=== PATIENT | male | born 1985 | race African-American/Black ===

== ENCOUNTER 2019-08-26 07:53 | Emergency (ER) | payer SELFPAY ==
[~2019-08-26] VITALS: Ht 167.6 cm; Wt 79.4 kg
--- NOTE | 2019-08-26 08:14 | PHYS DOC ---
Past Medical History Past Medical History: Diabetes-Type I, Hypertension Smoking: Cigarettes Alcohol Use: Occasionally Drug Use: Marijuana Adult General Chief Complaint Chief Complaint: NAUSEA/VOMITING/DIARRHA HPI HPI Patient is a 33-year-old male who presents to the emergency department for evaluation. He states that for the past 12 hours he has had some upper abdominal pain, and recurrent episodes of vomiting, as well as some loose stools. He has not had any fevers or chills. He states he has had symptoms trace blood streaked emesis, but no bloody stools. He has had similar symptoms in the past. He states he had "a shot" of alcohol yesterday evening, but admits to smoking marijuana daily. He denies any chest pain, shortness of breath, dizziness or lightheadedness. He does appear to be generally weak and fatigued. EMS reported the blood sugar in the 180s. There are no alleviating or exacerbating factors to his symptoms otherwise Review of Systems Review of Systems Constitutional: Denies fever or chills [] Eyes: Denies change in visual acuity, redness, or eye pain [] HENT: Denies nasal congestion or sore throat [] Respiratory: Denies cough or shortness of breath [] Cardiovascular: The patient denies any shortness of breath, chest pain, palpitations, or orthopnea [] GI: No additional information not addressed in HPI [] : Denies dysuria or hematuria [] Musculoskeletal: Denies back pain or joint pain [] Integument: Denies rash or skin lesions [] Neurologic: Denies headache, focal weakness or sensory changes [] Endocrine: Denies polyuria or polydipsia [] All other systems were reviewed and found to be within normal limits, except as documented in this note. Current Medications Current Medications Current Medications Medications (Trade) Dose Ordered Sig/Veto Start Time Stop Time Status Last Admin Dose Admin Amlodipine Besylate (Norvasc) 10 mg 1X ONCE 08/26/19 11:45 08/26/19 11:46 DC 08/26/19 11:51 10 MG Carvedilol (Coreg) 12.5 mg 1X ONCE 08/26/19 11:45 08/26/19 11:46 DC 08/26/19 11:52 12.5 MG Haloperidol Lactate (Haldol Inj) 2.5 mg 1X ONCE 08/26/19 08:15 08/26/19 08:35 DC 08/26/19 08:38 2.5 MG Info (CONTRAST GIVEN -- Rx MONITORING) 1 each PRN DAILY PRN 08/26/19 09:45 08/28/19 09:44 Insulin Human Regular (HumuLIN R VIAL) 5 unit 1X ONCE 08/26/19 11:30 08/26/19 11:31 DC 08/26/19 11:52 5 UNIT Iohexol (Omnipaque 300 Mg/ml) 75 ml 1X ONCE 08/26/19 09:45 08/26/19 09:46 DC 08/26/19 09:59 75 ML Labetalol HCl (Normodyne Iv Push) 20 mg 1X ONCE 08/26/19 10:00 08/26/19 10:01 DC Lisinopril (Prinivil) 40 mg 1X ONCE 08/26/19 11:45 08/26/19 11:46 DC 08/26/19 11:51 40 MG Lorazepam (Ativan Inj) 2 mg STK-MED ONCE 08/26/19 08:35 08/26/19 08:35 DC Ondansetron HCl (Zofran) 4 mg 1X ONCE 08/26/19 08:15 08/26/19 08:35 DC 08/26/19 08:37 4 MG Sodium Chloride 1,000 ml @ 1,000 mls/hr 1X ONCE 08/26/19 11:15 08/26/19 12:14 08/26/19 11:21 1,000 MLS/HR Allergies Allergies Allergies Coded Allergies Type Severity Reaction Last Updated Verified No Known Drug Allergies 08/26/19 No Physical Exam Physical Exam PHYSICAL EXAM: CONSTITUTIONAL: Well developed, well nourished HEAD: normocephalic, atraumatic EENT: PERRL, EOMI. Conjunctivae normal color, sclerae non-icteric; moist mucous membranes. NECK: Supple, non-tender; no meningismus. LUNGS: Lungs CTA, breathing even and unlabored. Normal air movement. HEART: Regular rate and rhythm, no murmur CHEST: No deformity; non-tender ABDOMEN: The abdomen is soft, and non-tender, no masses or bruits. There is no reproducible tenderness to palpation of the abdomen. Normal bowel sounds are present. EXTREM: Normal ROM; no deformity, no calf tenderness. Normal pulses palpable in all extremities. There is no pedal edema. SKIN: No rash; no diaphoresis NEURO: Alert; normal speech and cognition; CN's grossly intact; strength grossly intact without focal deficit. BACK: No CVA TTP. Current Patient Data Vital Signs Vital Signs Date Time Temp Pulse Resp B/P (MAP) Pulse Ox O2 Delivery O2 Flow Rate FiO2 08/26/19 11:52 78 171/110 08/26/19 11:12 20 98 Room Air 08/26/19 07:54 97.6 97.6 Lab Values Laboratory Tests Test 08/26/19 08:20 08/26/19 10:15 08/26/19 11:20 White Blood Count 16.5 x10^3/uL (4.0-11.0) H Red Blood Count 6.04 x10^6/uL (4.30-5.70) H Hemoglobin 14.4 g/dL (13.0-17.5) Hematocrit 45.8 % (39.0-53.0) Mean Corpuscular Volume 76 fL (79-100) L Mean Corpuscular Hemoglobin 24 pg (25-35) L Mean Corpuscular Hemoglobin Concent 31 g/dL (31-37) Red Cell Distribution Width 14.3 % (11.5-14.5) Platelet Count 299 x10^3/uL (140-400) Neutrophils (%) (Auto) 86 % (31-73) H Lymphocytes (%) (Auto) 10 % (24-48) L Monocytes (%) (Auto) 4 % (0-9) Eosinophils (%) (Auto) 0 % (0-3) Basophils (%) (Auto) 1 % (0-3) Neutrophils # (Auto) 14.2 x10^3/uL (1.8-7.7) H Lymphocytes # (Auto) 1.6 x10^3/uL (1.0-4.8) Monocytes # (Auto) 0.7 x10^3/uL (0.0-1.1) Eosinophils # (Auto) 0.0 x10^3/uL (0.0-0.7) Basophils # (Auto) 0.1 x10^3/uL (0.0-0.2) Segmented Neutrophils % 89 % (35-66) H Band Neutrophils % 1 % (0-9) Lymphocytes % 8 % (24-48) L Monocytes % 2 % (0-10) Platelet Estimate Adequate (ADEQUATE) Hypochromasia Present Microcytosis Present Sodium Level 140 mmol/L (136-145) Potassium Level 4.2 mmol/L (3.5-5.1) Chloride Level 98 mmol/L (98-107) Carbon Dioxide Level 25 mmol/L (21-32) Anion Gap 17 (6-14) H Blood Urea Nitrogen 9 mg/dL (8-26) Creatinine 0.8 mg/dL (0.7-1.3) Estimated GFR (Cockcroft-Gault) 136.4 BUN/Creatinine Ratio 11 (6-20) Glucose Level 266 mg/dL (70-99) H Calcium Level 10.0 mg/dL (8.5-10.1) Total Bilirubin 0.8 mg/dL (0.2-1.0) Aspartate Amino Transferase (AST) 16 U/L (15-37) Alanine Aminotransferase (ALT) 8 U/L (16-63) L Alkaline Phosphatase 70 U/L (46-116) Total Protein 9.4 g/dL (6.4-8.2) H Albumin 4.8 g/dL (3.4-5.0) Albumin/Globulin Ratio 1.0 (1.0-1.7) Lipase 137 U/L (73-393) Urine Collection Type Void Urine Color Yellow Urine Clarity Clear Urine pH 6.5 Urine Specific [place] >=1.030 Urine Protein 100 mg/dL (NEG-TRACE) Urine Glucose (UA) >=1000 mg/dL (NEG) Urine Ketones (Stick) >=80 mg/dL (NEG) Urine Blood Negative (NEG) Urine Nitrite Negative (NEG) Urine Bilirubin Negative (NEG) Urine Urobilinogen Dipstick 1.0 mg/dL (0.2 mg/dL) Urine Leukocyte Esterase Negative (NEG) Urine RBC 1-2 /HPF (0-2) Urine WBC 1-4 /HPF (0-4) Urine Squamous Epithelial Cells Occ /LPF Urine Bacteria Few /HPF (0-FEW) Urine Opiates Screen Neg (NEG) Urine Methadone Screen Neg (NEG) Urine Barbiturates Neg (NEG) Urine Phencyclidine Screen Neg (NEG) Urine Amphetamine/Methamphetamine Neg (NEG) Urine Benzodiazepines Screen Neg (NEG) Urine Cocaine Screen Neg (NEG) Urine Cannabinoids Screen Pos (NEG) Urine Ethyl Alcohol Neg (NEG) Glucose (Fingerstick) 223 mg/dL (70-99) H Laboratory Tests 08/26/19 08:20 Laboratory Tests 08/26/19 08:20 EKG EKG Normal sinus rhythm at a rate of 53 bpm, normal axis, normal intervals, incomplete right bundle-branch block. Nonspecific ST/T changes are present.[] Radiology/Procedures Radiology/Procedures PROCEDURE: CT ABD PELV W/ IV CONTRST ONLY PQRS Compliance Statement: One or more of the following individualized dose reduction techniques were utilized for this examination: 1. Automated exposure control 2. Adjustment of the mA and/or kV according to patient size 3. Use of iterative reconstruction technique CT abdomen/pelvis with contrast 08/26/2019 9:31 AM INDICATION: Abdominal pain with nausea and vomiting COMPARISON: None available TECHNIQUE: Multiple axial CT images of the abdomen and pelvis were obtained after the intravenous administration of 75 mL Omnipaque 300. Coronal and sagittal reformats are provided. FINDINGS: Lung bases are clear. Heart size within normal limits. Mild esophageal wall thickening is noted involving the distal esophagus which may be associated with esophagitis. Liver, spleen, bilateral adrenal glands, pancreas and gallbladder are normal in appearance. The abdominal aorta is normal in course and caliber. There are no pathologically enlarged lymph nodes in the abdomen and pelvis. There is no abdominal free fluid. There is no free intraperitoneal air. Nonenlarged lymph nodes measure up to 8 mm on the right. The kidneys enhance symmetrically. There is no suspicious renal mass. There is no hydronephrosis. There are no suspected calculi within the kidneys, ureters or urinary bladder. Small and large bowel are normal in caliber. There is no evidence for bowel obstruction. There is mild wall thickening involving the right colon. A normal, nondilated appendix is visualized without adjacent inflammatory changes. Urinary bladder is within normal limits given degree of distention. Prostate and seminal vesicles are normal in appearance. No suspicious osseous abnormality is identified. IMPRESSION: 1. Mild esophageal thickening may be associated with esophagitis. 2. Mild wall thickening involving the right colon could represent early colitis versus underdistention. 3. Appendix is normal in appearance. [] Course & Med Decision Making Course & Med Decision Making Pertinent Labs and Imaging studies reviewed. (See chart for details) []12:00 PM: The patient's condition remained stable he is feeling much better at this time. Discussed test results with the patient, the need for close GI follow-up, the importance of marijuana cessation and the possibility that this is contributing to his symptoms, and return precautions were discussed in detail.Patient reports he does have an adequate supply of his blood pressure medication but did not take it yet today. He will be given a dose of his blood pressure medication. Dragon Disclaimer Dragon Disclaimer This electronic medical record was generated, in whole or in part, using a voice recognition dictation system. Departure Departure Impression: Primary Impression: Abdominal pain Additional Impression: Cannabis hyperemesis syndrome concurrent with and due to cannabis abuse Disposition: HOME, SELF-CARE Condition: STABLE Referrals: SANTHOSH STILL MD Patient Instructions: Abdominal Pain, Cyclic Vomiting Syndrome, Marijuana Abuse and Chemical Dependency, Nausea and Vomiting Scripts Omeprazole (OMEPRAZOLE) 20 Mg Capsule. 20 MG PO DAILY for 30 Days, #30 CAP Prov: IRA CORBETT MD 08/26/19 Problem Qualifiers IRA CORBETT MD Aug 26, 2019 08:14
[2019-08-26] MEDS ORDERED: HALOPERIDOL LACTATE 5 MG/ML VIAL. IVP ONE (08:15)
[2019-08-26] MEDS ORDERED: IV NORMAL SALINE 1000ML BAG 1,000 ML IV ONE ×2 (08:15→11:15)
[2019-08-26] MEDS ORDERED: ONDANSETRON PF 4 MG/2 ML VIAL. IV ONE (08:15)
[2019-08-26 08:49] LABS: BASO # 0.1 x10^3/uL (0.0-0.2); BASO % 1 % (0-3); EOS % 0 % (0-3); HEMATOCRIT 45.8 % (39.0-53.0); HEMOGLOBIN 14.4 g/dL (13.0-17.5); LYMPH # 1.6 x10^3/uL (1.0-4.8); LYMPH % 10 % (24-48); MEAN CORPUSCULAR HEMOGLOBIN 24 pg (25-35); MEAN CORPUSCULAR HGB CONC 31 g/dL (31-37); MEAN CORPUSCULAR VOLUME 76 fL (79-100); MONO # 0.7 x10^3/uL (0.0-1.1); MONO % 4 % (0-9); NEUT # 14.2 x10^3/uL (1.8-7.7); NEUT % 86 % (31-73); PLATELET COUNT 299 x10^3/uL (140-400); RED BLOOD COUNT 6.04 x10^6/uL (4.30-5.70); RED CELL DISTRIBUTION WIDTH 14.3 % (11.5-14.5); WHITE BLOOD COUNT 16.5 x10^3/uL (4.0-11.0)
[2019-08-26 09:02] LABS: CREATININE 0.8 mg/dL (0.7-1.3); GFR 136.4
[2019-08-26 09:04] LABS: ALBUMIN 4.8 g/dL (3.4-5.0); POTASSIUM 4.2 mmol/L (3.5-5.1); TOTAL BILIRUBIN 0.8 mg/dL (0.2-1.0); TOTAL PROTEIN 9.4 g/dL (6.4-8.2)
[2019-08-26] MEDS ORDERED: CONTRAST GIVEN. MC PRN (09:45)
[2019-08-26] MEDS ORDERED: IOHEXOL 300 MG/ML 100ML VIAL. IV ONE (09:45)
[2019-08-26] MEDS ORDERED: LABETALOL 20 MG/4 ML DISP.SYRIN. IVP ONE (10:00)
--- NOTE | 2019-08-26 10:10 | RAD ---
PQRS Compliance Statement: One or more of the following individualized dose reduction techniques were utilized for this examination: 1. Automated exposure control 2. Adjustment of the mA and/or kV according to patient size 3. Use of iterative reconstruction technique CT abdomen/pelvis with contrast 08/26/2019 9:31 AM INDICATION: Abdominal pain with nausea and vomiting COMPARISON: None available TECHNIQUE: Multiple axial CT images of the abdomen and pelvis were obtained after the intravenous administration of 75 mL Omnipaque 300. Coronal and sagittal reformats are provided. FINDINGS: Lung bases are clear. Heart size within normal limits. Mild esophageal wall thickening is noted involving the distal esophagus which may be associated with esophagitis. Liver, spleen, bilateral adrenal glands, pancreas and gallbladder are normal in appearance. The abdominal aorta is normal in course and caliber. There are no pathologically enlarged lymph nodes in the abdomen and pelvis. There is no abdominal free fluid. There is no free intraperitoneal air. Nonenlarged lymph nodes measure up to 8 mm on the right. The kidneys enhance symmetrically. There is no suspicious renal mass. There is no hydronephrosis. There are no suspected calculi within the kidneys, ureters or urinary bladder. Small and large bowel are normal in caliber. There is no evidence for bowel obstruction. There is mild wall thickening involving the right colon. A normal, nondilated appendix is visualized without adjacent inflammatory changes. Urinary bladder is within normal limits given degree of distention. Prostate and seminal vesicles are normal in appearance. No suspicious osseous abnormality is identified. IMPRESSION: 1. Mild esophageal thickening may be associated with esophagitis. 2. Mild wall thickening involving the right colon could represent early colitis versus underdistention. 3. Appendix is normal in appearance. Electronically signed by: Nati Son MD (08/26/2019 10:07 AM) [facility]
[2019-08-26 10:36] LABS: BILIRUBIN,URINE NEGATIVE (NEG); CLARITY,URINE CLEAR; COLOR,URINE YELLOW; NITRITE,URINE NEGATIVE (NEG); PH,URINE 6.5; PROTEIN,URINE 100 mg/dL (NEG-TRACE)
[2019-08-26 10:43] LABS: % BANDS 1 % (0-9); % LYMPHS 8 % (24-48); % MONOS 2 % (0-10); % SEGS 89 % (35-66); PLT ESTIMATE ADEQUATE (ADEQUATE)
[2019-08-26 10:44] LABS: HYPOCHROMIA PRESENT; MICROCYTOSIS PRESENT
[2019-08-26 10:44] LABS: AMPHETAMINE/METHAMPHETAMINE NEG (NEG); BARBITURATES NEG (NEG); BENZODIAZEPINES NEG (NEG); CANNABINOIDS POS (NEG); COCAINE NEG (NEG); METHADONE NEG (NEG); OPIATES NEG (NEG); PHENCYCLIDINE NEG (NEG)
[2019-08-26 10:48] LABS: BACTERIA,URINE FEW /HPF (0-FEW); SQUAMOUS EPITHELIAL CELL,UR OCC /LPF
[2019-08-26] MEDS ORDERED: INSULIN REGULAR 100 UNIT/ML 3ML VIAL. IV ONE (11:30)
[2019-08-26] MEDS ORDERED: LISINOPRIL 10 MG TABLET PO ONE (11:45)
[2019-08-26] MEDS ORDERED: amLODIPine BESYLATE 5 MG TABLET PO ONE (11:45)
[2019-08-26] MEDS ORDERED: CARVEDILOL 12.5 MG TABLET. PO ONE (11:45)
[2019-08-26] MEDS ORDERED: OMEP20CA10 PO (12:02)
[2019-08-26 12:12] VITALS: BP 175/97
--- NOTE | 2019-08-26 14:38 | EKG ---
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
== END 2019-08-26 12:26 | disposition home or self-care (01) ==
LOC: ER 07:53
DX: R10.10 Upper abdominal pain, unspecified (principal); R11.10 Vomiting, unspecified; E10.8 Type 1 diabetes mellitus with unspecified complications; I10 Essential (primary) hypertension; Z72.0 Tobacco use; Z72.89 Other problems related to lifestyle; F12.188 Cannabis abuse with other cannabis-induced disorder
CPT/HCPCS: 36415; 74177; 80053; 80307; 81001; 82962; 83690; 85007; 85025; 93005; 96361; 96374; 96375; 99285; J1630; J1815; J2060; J2405; J7030; Q9967

== ENCOUNTER 2019-12-01 03:37 | Inpatient (IN) | payer SELFPAY ==
[2019-12-01] VITALS (8 sets, daily range): BP systolic 102–168; BP diastolic 56–110
[~2019-12-01] VITALS: Ht 167.6 cm; Wt 80.0 kg
[~2019-12-01 03:37] MED LIST: INSU100I11 SQ; INSU100I13 SQ; OMEP20CA16 PO
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
[2019-12-01] MEDS ORDERED: IV NORMAL SALINE 1000ML BAG 1,000 ML IV SCH ×2 (04:00→05:39)
[2019-12-01 04:13] LABS: BASO # 0.1 x10^3/uL (0.0-0.2); BASO % 1 % (0-3); EOS % 0 % (0-3); HEMATOCRIT 42.4 % (39.0-53.0); HEMOGLOBIN 13.4 g/dL (13.0-17.5); LYMPH # 1.7 x10^3/uL (1.0-4.8); LYMPH % 11 % (24-48); MEAN CORPUSCULAR HEMOGLOBIN 24 pg (25-35); MEAN CORPUSCULAR HGB CONC 32 g/dL (31-37); MEAN CORPUSCULAR VOLUME 75 fL (79-100); MONO # 0.5 x10^3/uL (0.0-1.1); MONO % 3 % (0-9); NEUT # 12.5 x10^3/uL (1.8-7.7); NEUT % 84 % (31-73); PLATELET COUNT 360 x10^3/uL (140-400); RED BLOOD COUNT 5.65 x10^6/uL (4.30-5.70); RED CELL DISTRIBUTION WIDTH 15.2 % (11.5-14.5); WHITE BLOOD COUNT 14.9 x10^3/uL (4.0-11.0)
[2019-12-01] MEDS ORDERED: PROCHLORPERAZINE 10 MG/2 ML VIAL. IV ONE (04:30)
[2019-12-01 04:44] LABS: CREATININE 0.9 mg/dL (0.7-1.3); GFR 118.3; POTASSIUM 3.6 mmol/L (3.5-5.1)
[2019-12-01 04:51] LABS: ALBUMIN 4.2 g/dL (3.4-5.0); ALBUMIN/GLOBULIN RATIO 1.1 (1.0-1.7); TOTAL BILIRUBIN 0.6 mg/dL (0.2-1.0); TOTAL PROTEIN 8.2 g/dL (6.4-8.2)
[2019-12-01] MEDS ORDERED: IV NORMAL SALINE 1000ML BAG 1,000 ML IV ONE (05:00)
[2019-12-01] MEDS ORDERED: POTASSIUM CHLORIDE 10MEQ 100 ML IV PRN ×3 (05:30)
[2019-12-01] MEDS ORDERED: POTASSIUM CHLORIDE 20 MEQ TABLET.ER. PO PRN ×3 (05:30)
[2019-12-01] MEDS ORDERED: ACETAMINOPHEN 325 MG TABLET. PO PRN (05:45)
[2019-12-01] MEDS ORDERED: ONDANSETRON PF 4 MG/2 ML VIAL. IV PRN (05:45)
[2019-12-01] MEDS ORDERED: INSULIN LISPRO 300 UNITS/3 ML VIAL. SQ ONE (06:00)
[2019-12-01 06:06] LABS: BASE EXCESS ABG -5 mmol/L (-3-3); HCO3 ABG 20 mmol/L (21-28); PCO2 ABG 35 mmHg (35-46); PO2 ABG 80 mmHg (85-108); SAT O2 ABG 95 % (92-99)
[2019-12-01 06:07] LABS: FIO2 ABG 21
[2019-12-01] MEDS: INSULIN REGULAR VIAL 100 UNIT in IV NORMAL SALINE 100ML 100 ML IV PRN ×4 (06:09→11:51)
[2019-12-01] MEDS: POTASSIUM CHLORIDE 10MEQ 100 ML IV SCH ×4 (08:58→12:41)
[2019-12-01] MEDS ORDERED: IV DEXTROSE 5 %-0.45 % NACL 1,000 ML IV SCH (09:14)
[2019-12-01 09:32] LABS: BILIRUBIN,URINE NEGATIVE (NEG); CLARITY,URINE CLEAR; COLOR,URINE YELLOW; NITRITE,URINE NEGATIVE (NEG); PH,URINE 5.5; PROTEIN,URINE 30 mg/dL (NEG-TRACE); UROBILINOGEN,URINE 0.2 mg/dL (0.2 mg/dL)
[2019-12-01 09:57] LABS: BACTERIA,URINE 0 /HPF (0-FEW); RBC,URINE 0 /HPF (0-2); SQUAMOUS EPITHELIAL CELL,UR FEW /LPF; WBC,URINE OCC /HPF (0-4)
[2019-12-01 10:02] LABS: BASO # 0.1 x10^3/uL (0.0-0.2); BASO % 0 % (0-3); EOS % 0 % (0-3); HEMATOCRIT 37.7 % (39.0-53.0); HEMOGLOBIN 11.6 g/dL (13.0-17.5); LYMPH # 2.6 x10^3/uL (1.0-4.8); LYMPH % 22 % (24-48); MEAN CORPUSCULAR HEMOGLOBIN 23 pg (25-35); MEAN CORPUSCULAR HGB CONC 31 g/dL (31-37); MEAN CORPUSCULAR VOLUME 75 fL (79-100); MONO # 1.3 x10^3/uL (0.0-1.1); MONO % 11 % (0-9); NEUT # 8.1 x10^3/uL (1.8-7.7); NEUT % 67 % (31-73); PLATELET COUNT 301 x10^3/uL (140-400); WHITE BLOOD COUNT 12.1 x10^3/uL (4.0-11.0)
--- NOTE | 2019-12-01 10:20 | EKG ---
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
[2019-12-01 10:29] LABS: ALBUMIN 3.7 g/dL (3.4-5.0); ALBUMIN/GLOBULIN RATIO 1.2 (1.0-1.7); CREATININE 0.8 mg/dL (0.7-1.3); GFR 135.6; MAGNESIUM 1.7 mg/dL (1.8-2.4); PHOSPHORUS 3.1 mg/dL (2.6-4.7); POTASSIUM 3.4 mmol/L (3.5-5.1); TOTAL BILIRUBIN 0.4 mg/dL (0.2-1.0); TOTAL PROTEIN 6.9 g/dL (6.4-8.2)
[2019-12-01] MEDS ORDERED: IV DEXTROSE 5% 250 ML BAG. IV PRN (11:45)
[2019-12-01] MEDS ORDERED: DEXTROSE 50% 25 GM / 50ML DISP.SYRIN. IV PRN (11:45)
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
[2019-12-01] MEDS ORDERED: INSULIN LISPRO 300 UNITS/3 ML VIAL. SQ SCH ×2 (12:00)
[2019-12-01] MEDS ORDERED: cefTRIAXone IV Push 1 GM VIAL. IVP SCH (12:00)
[2019-12-01] MEDS ORDERED: INSULIN GLARGINE SYRINGE. SQ SCH (21:00)
== END 2019-12-01 15:59 | disposition left against medical advice (07) | DRG 639 ==
LOC: ER 03:37 → 1 WEST ICU 07:27 → 4 NORTH 14:15
PROVIDERS: ADMIT Internal Medicine; ATTEND Internal Medicine
DX: E10.10 Type 1 diabetes mellitus with ketoacidosis without coma (principal); D72.829 Elevated white blood cell count, unspecified; I10 Essential (primary) hypertension; Z53.29 Procedure and treatment not carried out because of patient's decision for other reasons; Z79.4 Long term (current) use of insulin; Z83.3 Family history of diabetes mellitus; Z87.891 Personal history of nicotine dependence
CPT/HCPCS: 36415; 36600; 80053; 81001; 82010; 82805; 82962; 83605; 83735; 84100; 85025; 93005; 96361; 96365; 96366; 96368; 96372; 96375; 99291; J0696; J0780; J1815; J3480; J7030; G0378

== ENCOUNTER 2020-01-29 15:34 | Emergency (ER) | payer SELFPAY ==
[~2020-01-29] VITALS: Ht 167.6 cm; Wt 68.0 kg
[2020-01-29 16:25] LABS: BASO # 0.1 x10^3/uL (0.0-0.2); BASO % 1 % (0-3); EOS # 0.1 x10^3/uL (0.0-0.7); EOS % 1 % (0-3); HEMATOCRIT 40.9 % (39.0-53.0); HEMOGLOBIN 12.8 g/dL (13.0-17.5); LYMPH % 15 % (24-48); MEAN CORPUSCULAR HEMOGLOBIN 24 pg (25-35); MEAN CORPUSCULAR HGB CONC 31 g/dL (31-37); MEAN CORPUSCULAR VOLUME 75 fL (79-100); MONO # 0.5 x10^3/uL (0.0-1.1); MONO % 4 % (0-9); NEUT # 11.2 x10^3/uL (1.8-7.7); NEUT % 80 % (31-73); PLATELET COUNT 393 x10^3/uL (140-400); RED BLOOD COUNT 5.47 x10^6/uL (4.30-5.70); RED CELL DISTRIBUTION WIDTH 14.8 % (11.5-14.5)
[2020-01-29 16:29] LABS: BILIRUBIN,URINE NEGATIVE (NEG); CLARITY,URINE CLEAR; COLOR,URINE YELLOW; NITRITE,URINE NEGATIVE (NEG); PH,URINE 7.5 (<5.0-8.0); PROTEIN,URINE NEGATIVE (NEG-TRACE); UROBILINOGEN,URINE 0.2 mg/dL (0.2 mg/dL)
[2020-01-29 16:37] LABS: RBC,URINE RARE /HPF (0-2); WBC,URINE 0 /HPF (0-4)
[2020-01-29 16:38] LABS: BACTERIA,URINE 0 /HPF (0-FEW); SQUAMOUS EPITHELIAL CELL,UR FEW /LPF
[2020-01-29] MEDS ORDERED: IV NORMAL SALINE 1000ML BAG 1,000 ML IV ONE (17:00)
[2020-01-29] MEDS ORDERED: ONDANSETRON PF 4 MG/2 ML VIAL. IV ONE (17:00)
[2020-01-29 17:35] LABS: CALCIUM 8.2 mg/dL (8.5-10.1); CREATININE 0.9 mg/dL (0.7-1.3); GFR 118.3; POTASSIUM 3.6 mmol/L (3.5-5.1)
[2020-01-29 17:41] LABS: ALBUMIN 3.5 g/dL (3.4-5.0); TOTAL BILIRUBIN 0.3 mg/dL (0.2-1.0)
[2020-01-29] MEDS ORDERED: ONDA-84 PO (19:23)
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
[2020-01-29 19:28] VITALS: BP 130/68
== END 2020-01-29 19:30 | disposition home or self-care (01) ==
LOC: ER 15:34
DX: E10.65 Type 1 diabetes mellitus with hyperglycemia (principal); R11.2 Nausea with vomiting, unspecified; I10 Essential (primary) hypertension; F17.200 Nicotine dependence, unspecified, uncomplicated; F12.90 Cannabis use, unspecified, uncomplicated; Z98.890 Other specified postprocedural states
CPT/HCPCS: 36415; 80053; 81001; 82010; 82962; 84484; 85025; 96361; 96374; 99285; J2405; J7030

== ENCOUNTER 2020-02-24 12:48 | Emergency (ER) | payer SELFPAY ==
[~2020-02-24] VITALS: Ht 167.6 cm; Wt 59.0 kg
[~2020-02-24 12:48] MED LIST changes: +ONDA-84 PO
[2020-02-24] MEDS ORDERED: IV NORMAL SALINE 1000ML BAG 1,000 ML IV ONE ×2 (13:15)
[2020-02-24] MEDS ORDERED: ONDANSETRON PF 4 MG/2 ML VIAL. IV ONE (13:15)
[2020-02-24] MEDS ORDERED: METOCLOPRAMIDE HCL 10 MG/2 ML VIAL. IV ONE (14:30)
[2020-02-24] MEDS ORDERED: fentaNYL PF VIAL 100 MCG/2 ML VIAL IV ONE (14:30)
[2020-02-24] MEDS ORDERED: diphenhydrAMINE 50 MG/ML VIAL IVP ONE (14:30)
[2020-02-24 16:30] LABS: BASE EXCESS ABG 1 mmol/L (-3-3); HCO3 ABG 26 mmol/L (21-28); PCO2 ABG 41 mmHg (35-46); PO2 ABG 79 mmHg (85-108); SAT O2 ABG 95 % (92-99)
[2020-02-24 16:31] LABS: BASO % 1 % (0-3); EOS # 0.2 x10^3/uL (0.0-0.7); EOS % 2 % (0-3); HEMATOCRIT 36.9 % (39.0-53.0); HEMOGLOBIN 11.9 g/dL (13.0-17.5); LYMPH # 2.6 x10^3/uL (1.0-4.8); LYMPH % 29 % (24-48); MEAN CORPUSCULAR HEMOGLOBIN 24 pg (25-35); MEAN CORPUSCULAR HGB CONC 32 g/dL (31-37); MEAN CORPUSCULAR VOLUME 74 fL (79-100); MONO # 0.7 x10^3/uL (0.0-1.1); MONO % 7 % (0-9); NEUT # 5.6 x10^3/uL (1.8-7.7); NEUT % 62 % (31-73); PLATELET COUNT 330 x10^3/uL (140-400); RED BLOOD COUNT 5.01 x10^6/uL (4.30-5.70); RED CELL DISTRIBUTION WIDTH 14.7 % (11.5-14.5); WHITE BLOOD COUNT 9.1 x10^3/uL (4.0-11.0)
[2020-02-24 16:33] LABS: FIO2 ABG 21
[2020-02-24 16:39] LABS: CALCIUM 8.1 mg/dL (8.5-10.1); CREATININE 0.8 mg/dL (0.7-1.3); GFR 135.6; POTASSIUM 3.4 mmol/L (3.5-5.1)
[2020-02-24 16:45] LABS: ALBUMIN 3.3 g/dL (3.4-5.0); MAGNESIUM 1.7 mg/dL (1.8-2.4); TOTAL BILIRUBIN 0.4 mg/dL (0.2-1.0); TOTAL PROTEIN 6.5 g/dL (6.4-8.2)
[2020-02-24] MEDS ORDERED: ONDA4TAB7 PO (17:00)
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
[2020-02-24 17:13] VITALS: BP 175/110
== END 2020-02-24 17:19 | disposition home or self-care (01) ==
LOC: ER 12:48
DX: R11.2 Nausea with vomiting, unspecified (principal); F12.10 Cannabis abuse, uncomplicated; E11.9 Type 2 diabetes mellitus without complications; I10 Essential (primary) hypertension; F17.200 Nicotine dependence, unspecified, uncomplicated; Z98.890 Other specified postprocedural states
CPT/HCPCS: 36415; 36600; 80053; 82805; 82962; 83735; 85025; 96361; 96374; 96375; 99285; G0480; J1200; J2405; J2765; J3010; J7030

== ENCOUNTER 2020-03-12 18:21 | Emergency (ER) | payer SELFPAY ==
[~2020-03-12] VITALS: Ht 167.6 cm; Wt 72.7 kg
[~2020-03-12 18:21] MED LIST changes: +ONDA4TAB7 PO
[2020-03-12] MEDS ORDERED: IV NORMAL SALINE 1000ML BAG 1,000 ML IV ONE (18:45)
[2020-03-12] MEDS ORDERED: diphenhydrAMINE 50 MG/ML VIAL IVP ONE (18:45)
[2020-03-12] MEDS ORDERED: HALOPERIDOL LACTATE 5 MG/ML VIAL. IVP ONE (18:45)
[2020-03-12 19:02] LABS: BASO # 0.1 x10^3/uL (0.0-0.2); BASO % 1 % (0-3); EOS # 0.2 x10^3/uL (0.0-0.7); EOS % 2 % (0-3); HEMATOCRIT 39.6 % (39.0-53.0); LYMPH # 2.1 x10^3/uL (1.0-4.8); LYMPH % 19 % (24-48); MEAN CORPUSCULAR HEMOGLOBIN 25 pg (25-35); MEAN CORPUSCULAR HGB CONC 33 g/dL (31-37); MEAN CORPUSCULAR VOLUME 75 fL (79-100); MONO # 0.7 x10^3/uL (0.0-1.1); MONO % 6 % (0-9); NEUT # 7.8 x10^3/uL (1.8-7.7); NEUT % 72 % (31-73); PLATELET COUNT 395 x10^3/uL (140-400); RED BLOOD COUNT 5.29 x10^6/uL (4.30-5.70); RED CELL DISTRIBUTION WIDTH 16.1 % (11.5-14.5); WHITE BLOOD COUNT 10.9 x10^3/uL (4.0-11.0)
[2020-03-12 19:11] LABS: CALCIUM 9.3 mg/dL (8.5-10.1); CREATININE 0.9 mg/dL (0.7-1.3); GFR 118.3; POTASSIUM 3.7 mmol/L (3.5-5.1)
[2020-03-12 19:18] LABS: ALBUMIN 3.9 g/dL (3.4-5.0); ALBUMIN/GLOBULIN RATIO 1.1 (1.0-1.7); MAGNESIUM 1.7 mg/dL (1.8-2.4); TOTAL BILIRUBIN 0.6 mg/dL (0.2-1.0); TOTAL PROTEIN 7.5 g/dL (6.4-8.2)
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
[2020-03-12 20:31] VITALS: BP 178/97
[2020-03-12 20:35] LABS: BILIRUBIN,URINE NEGATIVE (NEG); CLARITY,URINE CLOUDY; COLOR,URINE YELLOW; NITRITE,URINE NEGATIVE (NEG); PH,URINE 8.5 (<5.0-8.0); PROTEIN,URINE 30 mg/dL (NEG-TRACE)
[2020-03-12 20:39] LABS: RBC,URINE 0 /HPF (0-2); WBC,URINE RARE /HPF (0-4)
[2020-03-12 20:40] LABS: BACTERIA,URINE 0 /HPF (0-FEW)
[2020-03-12 20:42] LABS: BARBITURATES NEG (NEG); BENZODIAZEPINES NEG (NEG); CANNABINOIDS POS (NEG); COCAINE NEG (NEG); METHADONE NEG (NEG); OPIATES NEG (NEG); PHENCYCLIDINE NEG (NEG)
[2020-03-12 20:43] LABS: AMPHETAMINE/METHAMPHETAMINE NEG (NEG)
[2020-03-12] MEDS ORDERED: PROM25SU33 RC (20:50)
== END 2020-03-12 21:02 | disposition home or self-care (01) ==
LOC: ER 18:21
DX: F12.188 Cannabis abuse with other cannabis-induced disorder (principal); R11.2 Nausea with vomiting, unspecified; E11.9 Type 2 diabetes mellitus without complications; I10 Essential (primary) hypertension; F17.200 Nicotine dependence, unspecified, uncomplicated
CPT/HCPCS: 36415; 80053; 80307; 81001; 83690; 83735; 85025; 87086; 96361; 96374; 96375; 99284; G0480; J1200; J1630; J7030

== ENCOUNTER 2020-03-29 09:41 | Emergency (ER) | payer SELFPAY ==
[~2020-03-29] VITALS: Ht 170.2 cm; Wt 72.7 kg
[~2020-03-29 09:41] MED LIST changes: +PROM25SU33 RC
[2020-03-29] MEDS ORDERED: METOCLOPRAMIDE HCL 10 MG/2 ML VIAL. IVP ONE (10:15)
[2020-03-29] MEDS ORDERED: IV NORMAL SALINE 1000ML BAG 1,000 ML IV ONE (10:15)
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
[2020-03-29 10:59] LABS: BASO # 0.1 x10^3/uL (0.0-0.2); BASO % 1 % (0-3); EOS # 0.2 x10^3/uL (0.0-0.7); EOS % 2 % (0-3); HEMATOCRIT 37.7 % (39.0-53.0); HEMOGLOBIN 12.1 g/dL (13.0-17.5); LYMPH # 1.8 x10^3/uL (1.0-4.8); LYMPH % 16 % (24-48); MEAN CORPUSCULAR HEMOGLOBIN 24 pg (25-35); MEAN CORPUSCULAR HGB CONC 32 g/dL (31-37); MEAN CORPUSCULAR VOLUME 75 fL (79-100); MONO % 9 % (0-9); NEUT # 8.2 x10^3/uL (1.8-7.7); NEUT % 72 % (31-73); PLATELET COUNT 370 x10^3/uL (140-400); RED BLOOD COUNT 5.04 x10^6/uL (4.30-5.70); RED CELL DISTRIBUTION WIDTH 15.7 % (11.5-14.5); WHITE BLOOD COUNT 11.3 x10^3/uL (4.0-11.0)
[2020-03-29] MEDS ORDERED: diphenhydrAMINE 50 MG/ML VIAL IVP ONE (11:00)
[2020-03-29] MEDS ORDERED: HALOPERIDOL LACTATE 5 MG/ML VIAL. IVP ONE (11:00)
[2020-03-29 11:08] LABS: CALCIUM 9.2 mg/dL (8.5-10.1); GFR 104.8; POTASSIUM 3.7 mmol/L (3.5-5.1)
[2020-03-29 11:18] LABS: ALBUMIN 3.9 g/dL (3.4-5.0); ALBUMIN/GLOBULIN RATIO 1.3 (1.0-1.7); MAGNESIUM 1.8 mg/dL (1.8-2.4); TOTAL BILIRUBIN 0.5 mg/dL (0.2-1.0); TOTAL PROTEIN 6.9 g/dL (6.4-8.2)
--- NOTE | 2020-03-29 11:40 | RAD ---
EXAM: Frontal view of the chest, AP views of the abdomen in upright and supine positions. CLINICAL INDICATION: Reason: abdominal pain, nausea, vomiting / Spl. Instructions: / History: COMPARISON: None. FINDINGS: The heart is not enlarged. Mediastinal and hilar contours are normal. No focal parenchymal airspace opacity. No pleural effusion or pneumothorax. No abnormal small or large bowel dilatation. Moderate colonic stool content. No abnormal soft tissue mass effect. No suspicious calcifications are seen. No free intraperitoneal gas. IMPRESSION: 1. No radiographic evidence for acute cardiopulmonary process. 2. No bowel obstruction. 3. Moderate colonic stool content. Electronically signed by: Codey Sargent MD (03/29/2020 11:38 AM) [id number]
[2020-03-29] MEDS ORDERED: METO10TA81 PO (13:05)
[2020-03-29 14:24] VITALS: BP 150/95
== END 2020-03-29 14:33 ==
LOC: ER 09:41
DX: R11.15 Cyclical vomiting syndrome unrelated to migraine (principal); R10.9 Unspecified abdominal pain; E11.9 Type 2 diabetes mellitus without complications; I10 Essential (primary) hypertension; F17.200 Nicotine dependence, unspecified, uncomplicated; F12.90 Cannabis use, unspecified, uncomplicated
CPT/HCPCS: 36415; 74022; 80053; 82010; 82962; 83690; 83735; 85025; 96361; 96374; 96375; 99285; J1200; J1630; J2060; J2765; J7030

== ENCOUNTER 2020-12-06 06:37 | Emergency (ER) | payer SELFPAY ==
[~2020-12-06] VITALS: Ht 167.6 cm; Wt 59.1 kg
[~2020-12-06 06:37] MED LIST changes: +METO10TA81 PO
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
[2020-12-06] MEDS ORDERED: IV NORMAL SALINE 1000ML BAG 1,000 ML IV ONE (07:00)
[2020-12-06] MEDS ORDERED: KETOROLAC 15 MG/ML VIAL. IVP ONE (07:00)
[2020-12-06] MEDS ORDERED: diphenhydrAMINE 50 MG/ML VIAL IVP ONE (07:00)
[2020-12-06] MEDS ORDERED: HALOPERIDOL LACTATE 5 MG/ML VIAL. IVP ONE (07:00)
[2020-12-06 08:11] LABS: BASO # 0.1 x10^3/uL (0.0-0.2); BASO % 1 % (0-3); EOS # 0.1 x10^3/uL (0.0-0.7); EOS % 1 % (0-3); HEMATOCRIT 37.6 % (39.0-53.0); HEMOGLOBIN 11.9 g/dL (13.0-17.5); LYMPH # 1.7 x10^3/uL (1.0-4.8); LYMPH % 15 % (24-48); MEAN CORPUSCULAR HEMOGLOBIN 23 pg (25-35); MEAN CORPUSCULAR HGB CONC 32 g/dL (31-37); MEAN CORPUSCULAR VOLUME 74 fL (79-100); MONO # 0.9 x10^3/uL (0.0-1.1); MONO % 8 % (0-9); NEUT # 8.4 x10^3/uL (1.8-7.7); NEUT % 74 % (31-73); PLATELET COUNT 320 x10^3/uL (140-400); RED BLOOD COUNT 5.12 x10^6/uL (4.30-5.70); RED CELL DISTRIBUTION WIDTH 14.7 % (11.5-14.5); WHITE BLOOD COUNT 11.3 x10^3/uL (4.0-11.0)
[2020-12-06 08:20] LABS: CALCIUM 8.7 mg/dL (8.5-10.1); CREATININE 0.8 mg/dL (0.7-1.3); GFR 134.7; POTASSIUM 3.3 mmol/L (3.5-5.1)
[2020-12-06 08:26] LABS: ALBUMIN 3.6 g/dL (3.4-5.0); ALBUMIN/GLOBULIN RATIO 1.1 (1.0-1.7); TOTAL BILIRUBIN 0.5 mg/dL (0.2-1.0)
[2020-12-06] MEDS ORDERED: POTASSIUM CHLORIDE 20 MEQ TABLET.ER. PO ONE (09:15)
[2020-12-06] MEDS ORDERED: ONDA4TAB12 PO (10:01)
[2020-12-06 10:15] VITALS: BP 164/97
--- NOTE | 2020-12-06 19:11 | EKG ---
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
== END 2020-12-06 10:18 | disposition home or self-care (01) ==
LOC: ER 06:37
DX: R11.2 Nausea with vomiting, unspecified (principal); R19.7 Diarrhea, unspecified; R05 Cough; E11.9 Type 2 diabetes mellitus without complications; Z79.4 Long term (current) use of insulin; I10 Essential (primary) hypertension; F17.200 Nicotine dependence, unspecified, uncomplicated
CPT/HCPCS: 36415; 80053; 83690; 85025; 93005; 96361; 96374; 96375; 99284; G0480; J1200; J1630; J1885; J7030

== ENCOUNTER 2021-12-02 17:15 | Emergency (ER) | payer SELFPAY ==
[~2021-12-02] VITALS: Ht 162.6 cm; Wt 71.1 kg
[~2021-12-02 17:15] MED LIST changes: +AMLO-187 PO; +CARV12.5 PO; +DOXY100C3 PO; +LISI-130 PO; +METF500T PO; +ONDA4TAB12 PO; +[UNRECOGNIZED DRUG - REMARK]
[2021-12-02] MEDS ORDERED: IV NORMAL SALINE 1000ML BAG 1,000 ML IV ONE (18:30)
[2021-12-02] MEDS ORDERED: KETOROLAC 30 MG/ML VIAL. IVP ONE (18:30)
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
[2021-12-02 19:23] LABS: INFLUENZA A PATIENT NEGATIVE (NEGATIVE); INFLUENZA B PATIENT NEGATIVE (NEGATIVE)
[2021-12-02 19:50] VITALS: BP 187/106
[2021-12-02 20:20] LABS: BASO # 0.1 x10^3/uL (0.0-0.2); BASO % 1 % (0-3); EOS # 0.1 x10^3/uL (0.0-0.7); EOS % 1 % (0-3); HEMATOCRIT 37.4 % (39.0-53.0); HEMOGLOBIN 11.8 g/dL (13.0-17.5); LYMPH # 2.4 x10^3/uL (1.0-4.8); LYMPH % 21 % (24-48); MEAN CORPUSCULAR HEMOGLOBIN 24 pg (25-35); MEAN CORPUSCULAR HGB CONC 32 g/dL (31-37); MEAN CORPUSCULAR VOLUME 76 fL (79-100); MONO # 1.1 x10^3/uL (0.0-1.1); MONO % 10 % (0-9); NEUT # 7.6 x10^3/uL (1.8-7.7); NEUT % 67 % (31-73); PLATELET COUNT 314 x10^3/uL (140-400); RED BLOOD COUNT 4.92 x10^6/uL (4.30-5.70); RED CELL DISTRIBUTION WIDTH 14.7 % (11.5-14.5); WHITE BLOOD COUNT 11.4 x10^3/uL (4.0-11.0)
[2021-12-02 20:30] LABS: CALCIUM 7.9 mg/dL (8.5-10.1); CREATININE 0.9 mg/dL (0.7-1.3); GFR 116.9; POTASSIUM 3.6 mmol/L (3.5-5.1)
[2021-12-02 20:35] LABS: ALBUMIN 3.4 g/dL (3.4-5.0); ALBUMIN/GLOBULIN RATIO 0.9 (1.0-1.7); TOTAL BILIRUBIN 0.6 mg/dL (0.2-1.0); TOTAL PROTEIN 7.1 g/dL (6.4-8.2)
--- NOTE | 2021-12-02 21:35 | RAD ---
EXAM: XR CHEST 1V 12/02/2021 6:40 PM CLINICAL INDICATION: Chest pain COMPARISON: Chest radiograph 11/04/2019 TECHNIQUE: AP upright view of the chest FINDINGS: The heart and mediastinum are normal. Lungs are well-expanded and clear. No consolidatio n, pleural effusion, or pneumothorax. Pulmonary vascularity is normal. The thoracic skeleton is int act. IMPRESSION: Normal chest radiograph. Electronically signed by: Sandra Chaidez MD (12/02/2021 9:33 PM) [id number]
--- NOTE | 2021-12-03 08:26 | EKG ---
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
== END 2021-12-02 22:27 | disposition home or self-care (01) ==
LOC: ER 17:15
DX: R07.89 Other chest pain (principal); Z20.822 Contact with and (suspected) exposure to COVID-19; R05.9 Cough, unspecified; E11.9 Type 2 diabetes mellitus without complications; I10 Essential (primary) hypertension; F17.200 Nicotine dependence, unspecified, uncomplicated; Z91.041 Radiographic dye allergy status
CPT/HCPCS: 36415; 71045; 80053; 83880; 84484; 85025; 87428; 93005; 96361; 96374; 99285; J1885; J7030